=== PATIENT | female | born 1975 | race Caucasian/White ===

== ENCOUNTER 2016-11-07 23:37 | Emergency (ER) | payer MEDICAID ==
[~2016-11-07] VITALS: Ht 162.6 cm; Wt 81.6 kg
[2016-11-08 00:24] LABS: Urine Bilirubin Negative (Negative); Urine Blood TRACE /uL (Negative); Urine Color Yellow (Yellow); Urine Glucose Normal (Normal); Urine Ketone Negative (Negative); Urine Mucus FEW (None Seen); Urine Nitrite Negative (Negative); Urine RBC 2 /hpf (0 - 4); Urine Squamous Epithelial Cell FEW /hpf (<5); Urine Urobilinogen Normal (Negative); Urine pH 6.5 (5.0-8.0)
[2016-11-08 01:19] LABS: Basophils # (auto) 0 uL; Basophils % (auto) 0.4 % (0.0-2.0); Eosinophils # (auto) 0.2 uL; Eosinophils % (auto) 2.6 % (0.0-7.0); Hematocrit 37.4 % (36.0-46.0); Hemoglobin 11.9 g/dL (12.2-16.2); Lymphocytes # (auto) 3.6 uL; Lymphocytes % (auto) 43.2 % (10.0-50.0); Mean Corpuscular Hemoglobin 27.8 pg (28.0-32.0); Mean Corpuscular Hgb Conc. 31.7 g/dL (32.0-36.0); Mean Corpuscular Volume 87.7 fL (80.0-100.0); Monocytes # (auto) 0.8 uL; Monocytes % (auto) 9.9 % (0.0-12.0); Neutrophils # (auto) 3.7 uL; Neutrophils % (auto) 43.9 % (37.0-80.0); Platelet Count (auto) 350 10^3/uL (140-450); Red Cell Distribution Width 14.3 % (11.6-16.0); White Blood Cell 8.4 10^3/uL (4.4-10.8)
[2016-11-08 01:43] LABS: Albumin 3.4 g/dL (3.4-5.0); BUN/Creatinine Ratio 13.1; Calcium 8.5 mg/dL (8.5-10.1); Potassium 4.2 mmol/L (3.5-5.1)
[2016-11-08 01:45] LABS: Bilirubin, Total 0.2 mg/dL (0.2-1.0); Total Protein 7.4 g/dL (6.4-8.2)
[2016-11-08 07:01] VITALS: BP 113/73
[2016-11-08] MEDS ORDERED: ALBUTEROL SULF 2.5 MG/0.5ML(0.5%) NEB SOLN NEB ONE (10:15)
[2016-11-08] MEDS ORDERED: IPRATROPIUM BROM 0.5 MG/2.5ML INH SOL NEB ONE (10:15)
== END 2016-11-08 10:58 | disposition home or self-care (01) ==
LOC: ER 23:40
DX: J45.909 Unspecified asthma, uncomplicated (principal); Z98.890 Other specified postprocedural states
CPT/HCPCS: 36415; 71020; 80053; 81001; 85025; 94640

== ENCOUNTER 2017-01-22 05:52 | Inpatient (IN) | payer MEDICAID ==
[~2017-01-22] VITALS: Ht 162.6 cm; Wt 100.4 kg
[2017-01-22 06:51] LABS: Basophils # (auto) 0 uL; Basophils % (auto) 0.3 % (0.0-2.0); Eosinophils # (auto) 0 uL; Eosinophils % (auto) 0.8 % (0.0-7.0); Hemoglobin 13.6 g/dL (12.2-16.2); Lymphocytes # (auto) 1.6 uL; Lymphocytes % (auto) 25.9 % (10.0-50.0); Mean Corpuscular Hemoglobin 27.1 pg (28.0-32.0); Mean Corpuscular Hgb Conc. 33.1 g/dL (32.0-36.0); Mean Corpuscular Volume 81.8 fL (80.0-100.0); Mean Platelet Volume 9.2 fL (7.4-10.4); Monocytes # (auto) 0.5 uL; Monocytes % (auto) 8.6 % (0.0-12.0); Neutrophils # (auto) 3.9 uL; Neutrophils % (auto) 64.4 % (37.0-80.0); Platelet Count (auto) 327 10^3/uL (140-450); White Blood Cell 6.1 10^3/uL (4.4-10.8)
[2017-01-22 07:24] LABS: Albumin 3.5 g/dL (3.4-5.0); Alkaline Phosphatase 324 U/L (45-117); Amylase 41 U/L (25-115); Anion Gap 9 (5-15); Aspartate Aminotransferase 978 U/L (15-37); BUN/Creatinine Ratio 11.4; Bilirubin, Total 0.6 mg/dL (0.2-1.0); Blood Urea Nitrogen 8 mg/dL (7-18); Calcium 8.5 mg/dL (8.5-10.1); Carbon Dioxide 27 mmol/L (21-32); Chloride 104 mmol/L (98-107); GFR African American 117 mL/min; GFR Non-African American 97 mL/min; Glucose 128 mg/dL (74-106); Potassium 4.2 mmol/L (3.5-5.1); Sodium 140 mmol/L (136-145); Total Protein 7.8 g/dL (6.4-8.2)
[2017-01-22] MEDS ORDERED: SODIUM CHLORIDE 0.9% 1,000 ML IVB ONE (07:44)
[2017-01-22] MEDS ORDERED: ONDANSETRON HCL 4 MG/2 ML VIAL IV ONE (07:45)
[2017-01-22] MEDS ORDERED: ALBUTEROL SULF 2.5 MG/0.5ML(0.5%) NEB SOLN NEB PRN (09:15)
[2017-01-22] MEDS ORDERED: LORazepam 0.5 MG TAB PO PRN (09:15)
[2017-01-22] MEDS ORDERED: PROCHLORPERAZINE EDISYLATE 5 MG/ML 2ML VIAL IV PRN (09:15)
[2017-01-22] MEDS ORDERED: TEMAZEPAM 15 MG CAP PO PRN (09:15)
[2017-01-22] MEDS: MORPHINE SULF 30 mg ER tab PO SCH ×2 (10:00→21:42)
[2017-01-22] MEDS: SODIUM CHLORIDE 0.9% 1,000 ML IV SCH ×2 (10:06→19:36)
[2017-01-22] MEDS: MORPHINE SULF INJ 2 MG/ML SYRINGE 1ML IV PRN ×2 (10:06→19:50)
[2017-01-22 10:30] VITALS: BP 144/84
[2017-01-22] MEDS ORDERED: PERCOT PO (11:23)
[2017-01-22] MEDS ORDERED: MORP30TA PO (11:23)
[2017-01-22 12:11] VITALS: BP 137/77
[2017-01-22 12:42] LABS: Hepatitis B Surface Antibody Negative
[2017-01-22 13:49] LABS: INR 0.94 (0.9-1.15); Prothrombin Time 10.1 sec (9.37-12.3)
[2017-01-22] MEDS ORDERED: fentaNYL CITRATE 100 MCG/2 ML VL ONE (14:06)
[2017-01-22] MEDS ORDERED: MIDAZOLAM HCL 1MG/1ML-2 ML VIAL ONE (14:06)
[2017-01-22] MEDS ORDERED: LIDOCAINE 2%HCL (LOCAL ANESTH.) INJ 20ML MDV ONE (14:08)
[2017-01-22 16:01] VITALS: BP 142/92
[2017-01-22 20:00] VITALS: BP 124/76
[2017-01-22 22:00] VITALS: BP 124/76
[2017-01-22] MEDS ORDERED: traMADol HCL 50 MG TAB PO ONE (23:00)
[2017-01-23] VITALS (7 sets, daily range): BP systolic 101–137; BP diastolic 52–96
[2017-01-23] MEDS: MORPHINE SULF INJ 2 MG/ML SYRINGE 1ML IV PRN ×3 (04:23→23:35)
[2017-01-23] MEDS: SODIUM CHLORIDE 0.9% 1,000 ML IV SCH ×2 (04:50→14:17)
[2017-01-23 05:06] LABS: Thyroid Peroxidase (TPO) Ab 10 IU/mL (0-34)
[2017-01-23 07:08] LABS: Basophils # (auto) 0 uL; Basophils % (auto) 0.4 % (0.0-2.0); Eosinophils # (auto) 0.1 uL; Eosinophils % (auto) 1.5 % (0.0-7.0); Hematocrit 36.9 % (36.0-46.0); Hemoglobin 12.2 g/dL (12.2-16.2); Lymphocytes # (auto) 2.3 uL; Lymphocytes % (auto) 36.8 % (10.0-50.0); Mean Corpuscular Hemoglobin 27.4 pg (28.0-32.0); Mean Corpuscular Hgb Conc. 33.2 g/dL (32.0-36.0); Mean Corpuscular Volume 82.5 fL (80.0-100.0); Mean Platelet Volume 9.2 fL (7.4-10.4); Monocytes # (auto) 0.6 uL; Neutrophils # (auto) 3.3 uL; Neutrophils % (auto) 52.3 % (37.0-80.0); Platelet Count (auto) 293 10^3/uL (140-450); Red Cell Distribution Width 14.1 % (11.6-16.0); White Blood Cell 6.3 10^3/uL (4.4-10.8)
[2017-01-23 07:36] LABS: BUN/Creatinine Ratio 8.1; Bilirubin, Total 0.5 mg/dL (0.2-1.0); Calcium 8.2 mg/dL (8.5-10.1); Potassium 4.1 mmol/L (3.5-5.1); Total Protein 6.8 g/dL (6.4-8.2)
[2017-01-23] MEDS: MORPHINE SULF 30 mg ER tab PO SCH ×2 (09:51→21:54)
[2017-01-23 12:49] LABS: Urine Bilirubin Negative (Negative); Urine Color Yellow (Yellow); Urine Glucose Normal (Normal); Urine Ketone Negative (Negative); Urine Nitrite Negative (Negative); Urine RBC 2 /hpf (0 - 4); Urine Squamous Epithelial Cell FEW /hpf (<5); Urine Urobilinogen Normal (Negative)
[2017-01-23 12:50] LABS: Urine Blood 1+ /uL (Negative)
[2017-01-23] MEDS: traMADol HCL 50 MG TAB PO PRN ×2 (12:50→21:54)
[2017-01-23 18:10] LABS: Sjogren's Anti-SS-A Antibody <0.2 AI (0.0-0.9)
[2017-01-24] MEDS: SODIUM CHLORIDE 0.9% 1,000 ML IV SCH ×2 (02:53→14:13)
[2017-01-24] MEDS: MORPHINE SULF INJ 2 MG/ML SYRINGE 1ML IV PRN ×4 (04:22→22:57)
[2017-01-24 05:00] VITALS: BP 134/79
[2017-01-24 07:01] LABS: Albumin 2.8 g/dL (3.4-5.0); BUN/Creatinine Ratio 17.5; Bilirubin, Total 0.3 mg/dL (0.2-1.0); Calcium 7.9 mg/dL (8.5-10.1); Potassium 4.1 mmol/L (3.5-5.1); Total Protein 6.6 g/dL (6.4-8.2)
[2017-01-24 09:01] VITALS: BP 107/76
[2017-01-24] MEDS: MORPHINE SULF 30 mg ER tab PO SCH ×2 (09:46→22:08)
[2017-01-24] MEDS: traMADol HCL 50 MG TAB PO PRN ×2 (12:11→19:48)
[2017-01-24 13:00] VITALS: BP 116/73
[2017-01-24 16:40] VITALS: BP 145/65
[2017-01-24 21:31] VITALS: BP 147/93
[2017-01-25] VITALS (7 sets, daily range): BP systolic 117–144; BP diastolic 52–88
[2017-01-25] MEDS: MORPHINE SULF INJ 2 MG/ML SYRINGE 1ML IV PRN ×5 (03:29→22:54)
[2017-01-25] MEDS: SODIUM CHLORIDE 0.9% 1,000 ML IV SCH ×2 (03:30→16:18)
[2017-01-25] MEDS: MORPHINE SULF 30 mg ER tab PO SCH ×2 (10:32→21:39)
[2017-01-25] MEDS: traMADol HCL 50 MG TAB PO PRN (16:18)
[2017-01-26] MEDS: MORPHINE SULF INJ 2 MG/ML SYRINGE 1ML IV PRN ×2 (03:03→07:00)
[2017-01-26 05:08] VITALS: BP 105/61
[2017-01-26] MEDS: SODIUM CHLORIDE 0.9% 1,000 ML IV SCH (06:20)
[2017-01-26 06:35] LABS: Albumin 3.1 g/dL (3.4-5.0); Calcium 8.1 mg/dL (8.5-10.1); Potassium 3.9 mmol/L (3.5-5.1)
[2017-01-26 06:38] LABS: BUN/Creatinine Ratio 15.4
[2017-01-26 06:42] LABS: Bilirubin, Total 0.4 mg/dL (0.2-1.0); Total Protein 6.7 g/dL (6.4-8.2)
[2017-01-26 07:31] VITALS: BP 114/76
[2017-01-26 08:00] VITALS: BP 114/76
[2017-01-26] MEDS: MORPHINE SULF 30 mg ER tab PO SCH (10:53)
[2017-01-26] MEDS: traMADol HCL 50 MG TAB PO PRN (10:58)
[2017-01-26 11:03] VITALS: BP 122/80
[2017-01-26 12:07] LABS: Anti-intermyofibrillar Ab Negative (Neg:<1:20); Anti-sarcolemma Antibody Negative (Neg:<1:20)
[2017-01-26 16:33] VITALS: BP 134/87
[2017-01-26 16:47] VITALS: BP 114/76
== END 2017-01-26 18:25 | disposition home or self-care (01) ==
LOC: ER 05:53 → OVERFLOW 05:54 → EAST 09:55 → CENTRAL 12:07
PROVIDERS: ADMIT Internal Medicine; ATTEND Internal Medicine
DX: K80.70 Calculus of gallbladder and bile duct without cholecystitis without obstruction (principal); K72.90 Hepatic failure, unspecified without coma; E66.9 Obesity, unspecified; G89.29 Other chronic pain; M54.9 Dorsalgia, unspecified; J45.909 Unspecified asthma, uncomplicated; Z79.891 Long term (current) use of opiate analgesic; Z82.49 Family history of ischemic heart disease and other diseases of the circulatory system; Z80.9 Family history of malignant neoplasm, unspecified; Z83.49 Family history of other endocrine, nutritional and metabolic diseases; Z68.38 Body mass index [BMI] 38.0-38.9, adult
CPT/HCPCS: 10022; 36415; 74150; 74181; 76705; 77012; 78226; 80053; 81001; 81025; 82150; 82390; 82728; 83540; 83550; 83690; 84484; 84702; 85025; 85610; 85652; 86141; 86225; 86235; 86704; 86706; 86708; 86803; 87340; 93005; 94761; 96361; 96374; J2250; J2405

== ENCOUNTER 2017-12-19 17:37 | Observation (INO) | payer MEDICAID ==
[~2017-12-19] VITALS: Ht 162.6 cm; Wt 86.2 kg
[~2017-12-19 17:37] MED LIST: MORP30TA PO; PERCOT PO
[2017-12-19] MEDS ORDERED: SODIUM CHLORIDE 0.9% 1,000 ML IVB ONE (18:10)
[2017-12-19 18:14] LABS: Basophils # (auto) 0.1 uL; Eosinophils # (auto) 0.1 uL; Eosinophils % (auto) 0.4 % (0.0-7.0); Hematocrit 49.5 % (36.0-46.0); Hemoglobin 16.5 g/dL (12.2-16.2); Lymphocytes # (auto) 1.9 uL; Lymphocytes % (auto) 14.1 % (10.0-50.0); Mean Corpuscular Hemoglobin 26.9 pg (28.0-32.0); Mean Corpuscular Hgb Conc. 33.3 g/dL (32.0-36.0); Mean Corpuscular Volume 80.6 fL (80.0-100.0); Monocytes # (auto) 0.6 uL; Monocytes % (auto) 4.3 % (0.0-12.0); Neutrophils # (auto) 10.7 uL; Neutrophils % (auto) 80.2 % (37.0-80.0); Nucleated Red Blood Cells % 0.3 %; Platelet Count (auto) 226 10^3/uL (140-450); Red Blood Cells 6.14 10^6/uL (4.0-5.20); Red Cell Distribution Width 15.2 % (11.8-14.3); White Blood Cell 13.4 10^3/uL (4.4-10.8)
[2017-12-19] MEDS ORDERED: MORPHINE SULF INJ 2 MG/ML SYRINGE 1ML IV PRN (18:15)
[2017-12-19] MEDS ORDERED: MORPHINE SULFATE 4 MG/ML SYR/VIAL IV PRN (18:45)
[2017-12-19 19:00] LABS: BUN/Creatinine Ratio 14.9; Calcium 8.4 mg/dL (8.5-10.1)
[2017-12-19 19:56] VITALS: BP 108/75
[2017-12-19 20:21] LABS: Alanine Aminotransferase 23 U/L (13-56); Albumin 3.5 g/dL (3.4-5.0); Alkaline Phosphatase 74 U/L (45-117); Aspartate Aminotransferase 18 U/L (15-37); Bilirubin, Direct < 0.1 mg/dL (0-0.2); Bilirubin, Total 0.3 mg/dL (0.2-1.0); Magnesium 2.4 mg/dL (1.6-2.6)
== END 2017-12-19 22:01 | disposition left against medical advice (07) ==
LOC: ER 17:37 → OVERFLOW 18:13 → ER 22:01
PROVIDERS: ADMIT Family Medicine; ATTEND Family Medicine
DX: K80.20 Calculus of gallbladder without cholecystitis without obstruction (principal); G89.29 Other chronic pain; M54.9 Dorsalgia, unspecified; Z79.891 Long term (current) use of opiate analgesic; Z88.8 Allergy status to other drugs, medicaments and biological substances
CPT/HCPCS: 36415; 76705; 80048; 80076; 82150; 83690; 83735; 85025; 94761; 96361; 96374; 99285; G0378; J2270; J7030